=== PATIENT | female | born 1950 | race African-American/Black ===

== ENCOUNTER 2020-10-16 12:27 | Emergency (ER) | payer OTHER ==
[2020-10-16 12:52] VITALS: BP 112/77; PULSE 85; TEMP 98.1; BMI 27.4
[2020-10-16] MEDS ORDERED: DIPHTH,PERTUSS(ACELL),TET 0.5 ML DISP.SYRIN IM ONE ×2 (13:24→13:35)
[2020-10-16 13:49] LABS: BASO % 1.2 % (0-2.0); EOS % 2.7 % (0-4.5); HEMATOCRIT 37.5 % (32.4-45.2); HEMOGLOBIN 12.7 GM/dL (10.7-15.3); MCH 30.1 pg (25.7-33.7); MCHC 33.9 g/dl (32.0-36.0); MEAN CELL VOLUME 88.7 fl (80-96); MEAN PLT VOLUME 8.8 fl (7.5-11.1); MONO % 8.3 % (3.8-10.2); NEUT % 41.8 % (42.8-82.8); PLATELET COUNT 312 K/MM3 (134-434); RBC 4.23 M/mm3 (3.60-5.2); RDW 13.5 % (11.6-15.6); WHITE BLOOD COUNT 6.7 K/mm3 (4.0-10.0)
[2020-10-16] MEDS ORDERED: HIV POST EXPOSURE PROPHYLAXIS KIT NR ONE (13:57)
[2020-10-16] MEDS ORDERED: HIV POST EXPOSURE PROPHYLAXIS KIT PO ONE (14:05)
[2020-10-16 14:22] LABS: ALBUMIN 4.2 g/dl (3.4-5.0); BLOOD UREA NITROGEN 13.5 mg/dL (7-18); CALCIUM 9.3 mg/dL (8.5-10.1)
[2020-10-16 14:25] LABS: CREATININE 0.7 mg/dL (0.55-1.3)
[2020-10-16 14:26] LABS: BILIRUBIN,TOTAL 0.2 mg/dL (0.2-1); TOT PROT 7.7 g/dl (6.4-8.2)
[2020-10-16 15:13] LABS: HIV INTERPRETATION NEGATIVE (NEGATIVE)
== END 2020-10-16 14:13 | disposition home or self-care (01) ==
LOC: JERFT 12:27
PROC: 3E0234Z Introduction of Serum, Toxoid and Vaccine into Muscle, Percutaneous Approach (ICD-10-PCS; principal; 2020-10-16)
DX: T14.8XXA Other injury of unspecified body region, initial encounter (principal)
CPT/HCPCS: 36415; 80053; 80074; 85025; 87389; 90715; 99284-25